=== PATIENT | female | born 1970 | race Caucasian/White ===

== ENCOUNTER 2020-09-22 09:03 | Emergency (ER) | payer OTHER | END 2020-09-22 11:57 | disposition left against medical advice (07) | LOC: ER 09:03 | DX: Z53.21 Procedure and treatment not carried out due to patient leaving prior to being seen by health care provider (principal) ==

== ENCOUNTER 2020-12-09 09:44 | Emergency (ER) | payer OTHER ==
[~2020-12-09] VITALS: Ht 177.8 cm; Wt 61.2 kg
[2020-12-09 10:28] LABS: BASOPHILS ABSOLUTE AUTO 0.03 K/mm3 (0.00-0.23); BASOPHILS PERCENT AUTO 0 % (0-2); EOSINOPHILS ABSOLUTE AUTO 0.01 K/mm3 (0.00-0.68); EOSINOPHILS PERCENT AUTO 0 % (0-6); Hematocrit 39.7 % (33.0-51.0); Hemoglobin 13.3 g/dL (11.5-16.0); IMMATURE GRAN ABSOLUTE AUTO 0.02 K/mm3 (0.00-0.10); IMMATURE GRAN PERCENT AUTO 0 % (0-1); LYMPHOCYTES ABSOLUTE AUTO 1.35 K/mm3 (0.84-5.20); LYMPHOCYTES PERCENT AUTO 17 % (21-46); MONOCYTES ABSOLUTE AUTO 0.38 K/mm3 (0.16-1.47); MONOCYTES PERCENT AUTO 5 % (4-13); Mean Corpuscular HGB 29.4 pg (26.0-34.0); Mean Corpuscular HGB Conc 33.5 g/dL (31.5-36.5); Mean Corpuscular Volume 88 fL (80-100); Mean Platelet Volume 9.5 fL (9.1-12.4); NEUTROPHILS ABSOLUTE AUTO 6.08 K/mm3 (1.96-9.15); NEUTROPHILS PERCENT AUTO 77 % (41-73); Platelet Count 273 K/mm3 (150-400); RDW Coefficient Variation 13.9 % (11.7-14.2); RDW Standard Deviation 45.2 fL (35.1-46.3); Red Blood Cell Count 4.53 M/mm3 (3.80-5.20); White Blood Cell Count 7.87 K/mm3 (4.00-11.30)
[2020-12-09 10:49] LABS: Alanine Aminotransfer (ALT/SGP 23 U/L (12-78); Albumin, Blood 3.8 g/dL (3.4-5.0); Albumin/Globulin Ratio 1.3 (0.8-1.8); Alk Phos 38 U/L (50-136); Anion Gap 8 mmol/L (6-16); Aspartate Aminotrans (AST/SGOT 14 U/L (12-37); Bilirubin, Total 0.5 mg/dL (0.1-1.0); Blood Urea Nitrogen 14 mg/dL (8-24); CO2, Blood 23 mmol/L (21-32); Calcium, Blood 8.9 mg/dL (8.5-10.1); Chloride, Blood 105 mmol/L (98-108); Glomerular Filtration Rate >60 (60-); Glucose, Blood 147 mg/dL (70-99); Potassium, Blood 3.6 mmol/L (3.5-5.5); Sodium, Blood 136 mmol/L (136-145); Total Protein, Blood 6.8 g/dL (6.4-8.2)
== END 2020-12-09 12:30 | disposition short-term general hospital (02) ==
LOC: ER 09:44
PROVIDERS: Emergency Medicine
DX: I77.71 Dissection of carotid artery (principal); H54.61 Unqualified visual loss, right eye, normal vision left eye
CPT/HCPCS: 70450; 70496; 70498; 80053; 85025; 96374; 96375; 99285-25; A9270; J2060; J2405; J3010; Q9967

== ENCOUNTER 2020-12-30 15:34 | Inpatient (IN) | payer OTHER ==
[~2020-12-30] VITALS: Ht 162.6 cm; Wt 63.5 kg
[2020-12-30 15:58] LABS: BASOPHILS ABSOLUTE AUTO 0.03 K/mm3 (0.00-0.23); BASOPHILS PERCENT AUTO 0 % (0-2); EOSINOPHILS PERCENT AUTO 0 % (0-6); Hematocrit 39.9 % (33.0-51.0); Hemoglobin 13.7 g/dL (11.5-16.0); IMMATURE GRAN ABSOLUTE AUTO 0.02 K/mm3 (0.00-0.10); IMMATURE GRAN PERCENT AUTO 0 % (0-1); LYMPHOCYTES ABSOLUTE AUTO 0.94 K/mm3 (0.84-5.20); LYMPHOCYTES PERCENT AUTO 9 % (21-46); MONOCYTES ABSOLUTE AUTO 0.26 K/mm3 (0.16-1.47); MONOCYTES PERCENT AUTO 2 % (4-13); Mean Corpuscular HGB 29.8 pg (26.0-34.0); Mean Corpuscular HGB Conc 34.3 g/dL (31.5-36.5); Mean Corpuscular Volume 87 fL (80-100); Mean Platelet Volume 9.4 fL (9.1-12.4); NEUTROPHILS ABSOLUTE AUTO 9.43 K/mm3 (1.96-9.15); NEUTROPHILS PERCENT AUTO 88 % (41-73); Platelet Count 285 K/mm3 (150-400); RDW Coefficient Variation 13.8 % (11.7-14.2); RDW Standard Deviation 43.8 fL (35.1-46.3); White Blood Cell Count 10.68 K/mm3 (4.00-11.30)
[2020-12-30 16:19] LABS: Ethanol (Alcohol), Blood, Med <3 mg/dL; Salicylate <1.7 mg/dL (2.8-20.0)
[2020-12-30 16:20] LABS: Alanine Aminotransfer (ALT/SGP 16 U/L (12-78); Albumin, Blood 4.4 g/dL (3.4-5.0); Albumin/Globulin Ratio 1.5 (0.8-1.8); Alk Phos 42 U/L (50-136); Anion Gap 7 mmol/L (6-16); Aspartate Aminotrans (AST/SGOT 14 U/L (12-37); Bilirubin, Total 0.5 mg/dL (0.1-1.0); Blood Urea Nitrogen 19 mg/dL (8-24); CO2, Blood 25 mmol/L (21-32); Calcium, Blood 8.8 mg/dL (8.5-10.1); Chloride, Blood 104 mmol/L (98-108); Globulin, Blood 2.9 g/dL (2.2-4.0); Glomerular Filtration Rate >60 (60-); Glucose, Blood 120 mg/dL (70-99); Sodium, Blood 136 mmol/L (136-145); Total Protein, Blood 7.3 g/dL (6.4-8.2)
[2020-12-30 16:43] LABS: Acetaminophen, Random 106.9 ug/mL (10.0-30.0)
[2020-12-30 16:45] LABS: Source, Urine Voided
[2020-12-30 16:50] LABS: Appearance, Urine Clear (Clear); Bilirubin, Urine Neg (Neg); Blood, Urine 1+ (Neg); Color, Urine Yellow (P-Yellow); Glucose Qualitative, Urine 4+ (Neg); Ketones, Urine Neg (Neg); Leukocyte Esterase, Urine 2+ (Neg); Nitrite, Urine Neg (Neg); Protein, Urine 1+ (Neg); Specific Gravity, Urine 1.015 (1.003-1.022); Urobilinogen, Urine NORM (Normal)
[2020-12-30 17:07] LABS: U Amphetamine Screen Not Detected; U Barbituate Screen Not Detected; U Benzodiazapine Screen Not Detected; U Buprenorphine Screen Not Detected; U Cannabinoids Screen DETECTED; U Cocaine Screen Not Detected; U Methadone Screen Not Detected; U Methamphetamine Screen Not Detected; U Opiates Screen Not Detected; U Oxycodone Screen Not Detected; U Phencyclidine Screen Not Detected; U Propoxyphene Screen Not Detected
[2020-12-30 17:17] LABS: Bacteria Many /hpf; Red Blood Cells, Urine 0-2 /hpf (0-2); Squamous Epithelial Cells Few /hpf (Few)
[2020-12-30 18:07] LABS: Influenza A, PCR NEGATIVE (NEGATIVE); Influenza B, PCR NEGATIVE (NEGATIVE); Resp Syncytial Virus, PCR NEGATIVE (NEGATIVE); SARS-Cov-2 (COVID-19) PCR, MMC NEGATIVE (NEGATIVE)
[2020-12-30 18:09] LABS: International Normalized Ratio 1.16; Prothrombin Time Results 12.1 Sec (9.7-11.5)
[2020-12-30 18:58] LABS: Albumin, Blood 4.4 g/dL (3.4-5.0); Albumin/Globulin Ratio 1.5 (0.8-1.8); Bilirubin, Direct 0.1 mg/dL (0.0-0.3); Bilirubin, Indirect 0.5 mg/dL (0.1-0.7); Bilirubin, Total 0.6 mg/dL (0.1-1.0); Globulin, Blood 2.9 g/dL (2.2-4.0); Total Protein, Blood 7.3 g/dL (6.4-8.2)
[2020-12-30 22:27] LABS: Acetaminophen, Random 22.9 ug/mL (10.0-30.0)
[2020-12-30 22:29] LABS: Alanine Aminotransfer (ALT/SGP 22 U/L (12-78); Albumin, Blood 3.5 g/dL (3.4-5.0); Albumin/Globulin Ratio 1.3 (0.8-1.8); Alk Phos 31 U/L (50-136); Aspartate Aminotrans (AST/SGOT 16 U/L (12-37); Bilirubin, Direct <0.1 mg/dL (0.0-0.3); Bilirubin, Indirect Unable to Calculate mg/dL (0.1-0.7); Bilirubin, Total 0.5 mg/dL (0.1-1.0); Globulin, Blood 2.7 g/dL (2.2-4.0); Total Protein, Blood 6.2 g/dL (6.4-8.2)
[2020-12-31 04:29] LABS: Albumin, Blood 3.4 g/dL (3.4-5.0); Albumin/Globulin Ratio 1.4 (0.8-1.8); Bilirubin, Direct 0.1 mg/dL (0.0-0.3); Bilirubin, Indirect 0.4 mg/dL (0.1-0.7); Bilirubin, Total 0.5 mg/dL (0.1-1.0); Globulin, Blood 2.4 g/dL (2.2-4.0); Total Protein, Blood 5.8 g/dL (6.4-8.2)
[2020-12-31 06:43] LABS: BASOPHILS ABSOLUTE AUTO 0.04 K/mm3 (0.00-0.23); BASOPHILS PERCENT AUTO 0 % (0-2); EOSINOPHILS ABSOLUTE AUTO 0.03 K/mm3 (0.00-0.68); EOSINOPHILS PERCENT AUTO 0 % (0-6); Hematocrit 37.4 % (33.0-51.0); Hemoglobin 13.2 g/dL (11.5-16.0); IMMATURE GRAN ABSOLUTE AUTO 0.04 K/mm3 (0.00-0.10); IMMATURE GRAN PERCENT AUTO 0 % (0-1); LYMPHOCYTES PERCENT AUTO 10 % (21-46); MONOCYTES ABSOLUTE AUTO 0.54 K/mm3 (0.16-1.47); MONOCYTES PERCENT AUTO 4 % (4-13); Mean Corpuscular HGB 29.8 pg (26.0-34.0); Mean Corpuscular HGB Conc 35.3 g/dL (31.5-36.5); Mean Corpuscular Volume 84 fL (80-100); Mean Platelet Volume 9.5 fL (9.1-12.4); NEUTROPHILS ABSOLUTE AUTO 10.54 K/mm3 (1.96-9.15); NEUTROPHILS PERCENT AUTO 85 % (41-73); Platelet Count 288 K/mm3 (150-400); RDW Coefficient Variation 13.8 % (11.7-14.2); RDW Standard Deviation 43.2 fL (35.1-46.3); Red Blood Cell Count 4.43 M/mm3 (3.80-5.20); White Blood Cell Count 12.39 K/mm3 (4.00-11.30)
[2020-12-31 07:12] LABS: Alanine Aminotransfer (ALT/SGP 18 U/L (12-78); Albumin, Blood 3.6 g/dL (3.4-5.0); Albumin/Globulin Ratio 1.2 (0.8-1.8); Alk Phos 30 U/L (50-136); Anion Gap 8 mmol/L (6-16); Aspartate Aminotrans (AST/SGOT 14 U/L (12-37); Bilirubin, Total 0.5 mg/dL (0.1-1.0); Blood Urea Nitrogen 14 mg/dL (8-24); Bun/Creatinine Ratio 17.9 (12.0-20.0); CO2, Blood 25 mmol/L (21-32); Calcium, Blood 8.7 mg/dL (8.5-10.1); Chloride, Blood 107 mmol/L (98-108); Creatinine, Blood 0.78 mg/dL (0.40-1.00); Glomerular Filtration Rate >60 (60-); Glucose, Blood 104 mg/dL (70-99); Potassium, Blood 3.6 mmol/L (3.5-5.5); Sodium, Blood 140 mmol/L (136-145); Total Protein, Blood 6.6 g/dL (6.4-8.2); Troponin I <0.015 ng/mL (0.000-0.040)
[2020-12-31 08:31] LABS: International Normalized Ratio 1.19; Prothrombin Time Results 12.4 Sec (9.7-11.5)
[2020-12-31 15:22] LABS: International Normalized Ratio 1.19; Prothrombin Time Results 12.4 Sec (9.7-11.5)
[2020-12-31 15:28] LABS: Acetaminophen, Random <2.0 ug/mL (10.0-30.0); Alanine Aminotransfer (ALT/SGP 16 U/L (12-78); Albumin, Blood 3.8 g/dL (3.4-5.0); Albumin/Globulin Ratio 1.3 (0.8-1.8); Alk Phos 38 U/L (50-136); Aspartate Aminotrans (AST/SGOT 14 U/L (12-37); Bilirubin, Direct 0.1 mg/dL (0.0-0.3); Bilirubin, Indirect 0.4 mg/dL (0.1-0.7); Bilirubin, Total 0.5 mg/dL (0.1-1.0); Total Protein, Blood 6.8 g/dL (6.4-8.2)
--- NOTE | 2020-12-31 17:02 | NUR ---
Per Dr Lucero, Poison control was updated about this pt being admitted. The poison control rep reported that the pt's case had been closed as her "overdose had ran its course".
--- NOTE | 2020-12-31 17:29 | NUR ---
SHIFT SUMMARY PT ARRIVED FROM ED VIA BED. PT C/O NEW ONSET LEFT HIP PAIN, PT STATES THAT IT BEGAN TODAY AFTER TAKING A SHOWER AND CITES A CHRONIC HEALTH CONDITION THE CAUSE. PT IS COOPERATIVE. 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 PT MADE VERY SPECIFIC REQUESTS TO THE HANDLING OF CURRENT IV ACCESS. PT STATED CHRONIC NECK PAIN A /. PT DENIES SOB AND CHEST PAIN.
[2021-01-01 04:43] LABS: Alanine Aminotransfer (ALT/SGP 16 U/L (12-78); Albumin, Blood 3.3 g/dL (3.4-5.0); Albumin/Globulin Ratio 1.2 (0.8-1.8); Alk Phos 34 U/L (50-136); Anion Gap 5 mmol/L (6-16); Aspartate Aminotrans (AST/SGOT 14 U/L (12-37); Bilirubin, Total 0.4 mg/dL (0.1-1.0); Blood Urea Nitrogen 11 mg/dL (8-24); Bun/Creatinine Ratio 14.3 (12.0-20.0); CO2, Blood 25 mmol/L (21-32); Calcium, Blood 8.1 mg/dL (8.5-10.1); Chloride, Blood 111 mmol/L (98-108); Creatinine, Blood 0.77 mg/dL (0.40-1.00); Globulin, Blood 2.7 g/dL (2.2-4.0); Glomerular Filtration Rate >60 (60-); Glucose, Blood 90 mg/dL (70-99); Potassium, Blood 4.1 mmol/L (3.5-5.5); Sodium, Blood 141 mmol/L (136-145)
--- NOTE | 2021-01-01 06:34 | NUR ---
SHIFT SUMMARY ASSUMED CARE OF PT AT 1900. PT IS A/OX4. HEART SOUNDS REGUALR, LUNG SOUNDS CLEAR. PT WAS INDEPENDT TO BATHROOM. PT REMAINED ON CAMERA T/O THE NIGHT. PT WAS VERY ANXIOUS AT THE START OF SHIFT. AND AWOKE DURING THE NIGHT PANICKED BECAUSE HER JAW POPPED AND SHE SAID IT FELT LIKE IT WAS FALLING OFF. PT STATED THAT SOMETIMES SHE USED 1MG OF ATIVAN TO CALM DOWN. HOSPITALIST NOTIFIED AND AGREED WITH THE ORDER. PT WAS ABLE TO SLEEP AFTER THIS AND WAS MORE CALM. CALL LIGHT IN REACH, BED IN LOWEST POSITION.
--- NOTE | 2021-01-01 11:40 | NUR ---
ALL SI PRECAUTIONS IN PLACE. CONTINUOUS VISUAL MONITORING IN PLACE. PT IS COOPERATIVE AND SLIGHTLY ANXIOUS. GOOD APPETITE. COMPLAINS OF SOME ABDOMINAL DISCOMFORT.
--- NOTE | 2021-01-01 12:07 | NUR ---
Upon receiving a referral for spiritual care, I visit patient. Patient is very tense initially but quickly began to relax her body and communicate more fluidly. Patient talks about her suicide attempt and she gives history and context to it. We then begin to explore sources of hope, meaning and purpose. She shares personal information and we discuss mindfulness practices, spirituality and reframing ways to think about her past, present and future. Patient responds well and and shows signs of cartharsis and increased hope. I will continue to assist in creating a plan for her own spiritul care if I get a chance to speak with her further.
[2021-01-01] MEDS ORDERED: LIDOCAINE1 EAC1 TOP (12:31)
--- NOTE | 2021-01-01 13:42 | NUR ---
CALLED REPORT TO [facility], [facility] IS WHO I GAVE REPORT TO.
--- NOTE | 2021-01-01 13:43 | NUR ---
PT IS A&OX4, ANXIOUS THROUGHOUT THE DAY. VSS ON RA. PT REPORTED NAUSEA, PRN ZOFRAN GIVEN. PT REPORTS EPIGASTRIC PAIN. IV REMOVED AND REPORT GIVEN TO [facility] ([facility]).
--- NOTE | 2021-01-01 14:52 | NUR ---
PT WAS PICKED UP BY [facility] @1400. BELONGING WERE GIVEN TO STAFF.
== END 2021-01-01 14:13 | DRG 918 ==
LOC: ER 15:34 → ERHOLD 18:35 → PCU 18:35
PROVIDERS: Emergency Medicine; Internal Medicine; ADMIT Family Medicine
DX: T39.1X2A Poisoning by 4-Aminophenol derivatives, intentional self-harm, initial encounter (principal); F32.9 Major depressive disorder, single episode, unspecified; F41.9 Anxiety disorder, unspecified; Z66 Do not resuscitate; G89.29 Other chronic pain; M54.2 Cervicalgia; Z20.822 Contact with and (suspected) exposure to COVID-19; Z87.891 Personal history of nicotine dependence
CPT/HCPCS: 0241U; 36415; 80053; 80076; 81001; 81025; 83735; 84439; 84443; 84484; 85025; 85610; 85730; 87086; 93005; 93010; 96374; 96375; 96376; 99285-25; A9270; G0480; J0132; J2405; J7030; J7060; J7070

== ENCOUNTER 2021-01-03 08:50 | Emergency (ER) | payer OTHER ==
[~2021-01-03] VITALS: Ht 177.8 cm; Wt 59.0 kg
[~2021-01-03 08:50] MED LIST: LIDOCAINE1 EAC1 TOP
[2021-01-03] MEDS ORDERED: Mobic15 MG PO (09:35)
== END 2021-01-03 10:00 | disposition home or self-care (01) ==
LOC: ER 08:50
DX: M25.812 Other specified joint disorders, left shoulder (principal); Z88.2 Allergy status to sulfonamides; Z91.040 Latex allergy status; Z79.899 Other long term (current) drug therapy; Z87.891 Personal history of nicotine dependence
CPT/HCPCS: 73030; 99283-25

== ENCOUNTER 2021-07-10 11:59 | Emergency (ER) | payer OTHER ==
[~2021-07-10] VITALS: Ht 177.8 cm; Wt 70.3 kg
[~2021-07-10 11:59] MED LIST changes: +Mobic15 MG PO
[2021-07-10] MEDS ORDERED: QUET200 PO (12:21)
[2021-07-10] MEDS ORDERED: CYCL10 PO (12:21)
[2021-07-10] MEDS ORDERED: DIAZ5 PO (15:18)
== END 2021-07-10 15:22 | disposition home or self-care (01) ==
LOC: ER 11:59
DX: M43.6 Torticollis (principal); M26.601 Right temporomandibular joint disorder, unspecified; Z87.891 Personal history of nicotine dependence; Z88.2 Allergy status to sulfonamides; Z91.040 Latex allergy status
CPT/HCPCS: 70498; 96374-59; 96375-59; 99284-25; J2405; J3360; Q9967

== ENCOUNTER 2021-10-09 03:55 | Emergency (ER) | payer OTHER ==
[~2021-10-09] VITALS: Ht 177.8 cm; Wt 65.8 kg
[~2021-10-09 03:55] MED LIST changes: +CYCL10 PO; +DIAZ5 PO; +QUET200 PO
[2021-10-09] MEDS ORDERED: OXYC5 PO (06:07)
[2021-10-10] MEDS ORDERED: Robaxin750 MG PO (03:11)
== END 2021-10-09 06:40 | disposition home or self-care (01) ==
LOC: ER 03:55
DX: M26.631 Articular disc disorder of right temporomandibular joint (principal); S76.012A Strain of muscle, fascia and tendon of left hip, initial encounter; X58.XXXA Exposure to other specified factors, initial encounter; Z87.891 Personal history of nicotine dependence
CPT/HCPCS: 70486; 73502; 96374; 96375; 96376; 99284-25; A9270; J1170; J1885; J2405

== ENCOUNTER 2021-10-10 00:05 | Emergency (ER) | payer OTHER ==
[~2021-10-10] VITALS: Ht 162.6 cm; Wt 72.6 kg
[~2021-10-10 00:05] MED LIST changes: +OXYC5 PO
[2021-10-10] MEDS ORDERED: Robaxin750 MG PO (03:11)
[2021-10-11] MEDS ORDERED: ONDA4ODT SL (18:03)
[2021-10-11] MEDS ORDERED: Ativan1 MG SL (18:05)
== END 2021-10-10 03:15 | disposition home or self-care (01) ==
LOC: ER 00:05
DX: M62.838 Other muscle spasm (principal); M26.621 Arthralgia of right temporomandibular joint; G89.29 Other chronic pain; Z88.2 Allergy status to sulfonamides; Z91.040 Latex allergy status
CPT/HCPCS: A9270

== ENCOUNTER 2021-10-11 13:47 | Emergency (ER) | payer OTHER ==
[~2021-10-11] VITALS: Ht 172.7 cm; Wt 59.0 kg
[~2021-10-11 13:47] MED LIST changes: +Robaxin750 MG PO
[2021-10-11 14:24] LABS: BASOPHILS ABSOLUTE AUTO 0.04 K/mm3 (0.00-0.23); BASOPHILS PERCENT AUTO 1 % (0-2); EOSINOPHILS ABSOLUTE AUTO 0.01 K/mm3 (0.00-0.68); EOSINOPHILS PERCENT AUTO 0 % (0-6); Hematocrit 43.6 % (33.0-51.0); Hemoglobin 15.3 g/dL (11.5-16.0); IMMATURE GRAN ABSOLUTE AUTO 0.02 K/mm3 (0.00-0.10); IMMATURE GRAN PERCENT AUTO 0 % (0-1); LYMPHOCYTES ABSOLUTE AUTO 1.66 K/mm3 (0.84-5.20); LYMPHOCYTES PERCENT AUTO 20 % (21-46); MONOCYTES ABSOLUTE AUTO 0.42 K/mm3 (0.16-1.47); MONOCYTES PERCENT AUTO 5 % (4-13); Mean Corpuscular HGB Conc 35.1 g/dL (31.5-36.5); Mean Corpuscular Volume 86 fL (80-100); Mean Platelet Volume 9.5 fL (9.1-12.4); NEUTROPHILS ABSOLUTE AUTO 6.19 K/mm3 (1.96-9.15); NEUTROPHILS PERCENT AUTO 74 % (41-73); Platelet Count 294 K/mm3 (150-400); RDW Coefficient Variation 12.2 % (11.7-14.2); RDW Standard Deviation 38.4 fL (35.1-46.3); White Blood Cell Count 8.34 K/mm3 (4.00-11.30)
[2021-10-11 14:37] LABS: Alanine Aminotransfer (ALT/SGP 29 U/L (12-78); Albumin, Blood 4.7 g/dL (3.4-5.0); Albumin/Globulin Ratio 1.8 (0.8-1.8); Alk Phos 45 U/L (50-136); Anion Gap 8 mmol/L (6-16); Aspartate Aminotrans (AST/SGOT 27 U/L (12-37); Bilirubin, Total 0.8 mg/dL (0.1-1.0); Blood Urea Nitrogen 11 mg/dL (8-24); Bun/Creatinine Ratio 13.2 (12.0-20.0); CO2, Blood 22 mmol/L (21-32); Chloride, Blood 108 mmol/L (98-108); Creatinine, Blood 0.83 mg/dL (0.40-1.00); Ethanol (Alcohol), Blood, Med <3 mg/dL; Globulin, Blood 2.6 g/dL (2.2-4.0); Glomerular Filtration Rate 86 (60-); Glucose, Blood 133 mg/dL (70-99); Potassium, Blood 3.5 mmol/L (3.5-5.5); Sodium, Blood 138 mmol/L (136-145); Total Protein, Blood 7.3 g/dL (6.4-8.2)
[2021-10-11] MEDS ORDERED: ONDA4ODT SL (18:03)
[2021-10-11] MEDS ORDERED: Ativan1 MG SL (18:05)
== END 2021-10-11 19:47 | disposition home or self-care (01) ==
LOC: ER 13:47
PROVIDERS: Physician Assistant
DX: M26.621 Arthralgia of right temporomandibular joint (principal); G51.31 Clonic hemifacial spasm, right; F32.A Depression, unspecified; Z88.2 Allergy status to sulfonamides; Z91.040 Latex allergy status; Z79.899 Other long term (current) drug therapy; Z87.891 Personal history of nicotine dependence
CPT/HCPCS: 36415; 70450; 80053; 85025; G0480; J1885; J2060

== ENCOUNTER 2021-11-17 17:55 | Emergency (ER) | payer OTHER ==
[~2021-11-17] VITALS: Ht 177.8 cm; Wt 68.0 kg
[~2021-11-17 17:55] MED LIST changes: +Ativan1 MG SL; +ONDA4ODT SL
[2021-11-17] MEDS ORDERED: CYCL10 PO (18:20)
[2021-11-17] MEDS ORDERED: PREG150 PO (18:21)
[2021-11-17] MEDS ORDERED: METPHE27ER PO (18:21)
[2021-11-17 18:35] LABS: Calcium, Ionized (POC) 1.24 mmol/L (1.10-1.46); Chloride (POC) 101 mmol/L (98-108); Creatinine (POC) 0.8 mg/dL (0.6-1.0); Glucose (ISTAT POC) 94 mg/dL (70-99); Hemoglobin (POC) 12.9 g/dL (12.0-16.0); Potassium (POC) 3.6 mmol/L (3.5-5.5); Sodium (POC) 139 mmol/L (135-148); Total CO2 (POC) 26 mmol/L (21-32)
[2021-11-17] MEDS ORDERED: Ativan1 MG PO (19:11)
== END 2021-11-17 19:37 | disposition home or self-care (01) ==
LOC: ER 17:55
PROVIDERS: Emergency Medicine
DX: M26.609 Unspecified temporomandibular joint disorder, unspecified side (principal); Z88.2 Allergy status to sulfonamides; F32.A Depression, unspecified; Z91.040 Latex allergy status; Z79.899 Other long term (current) drug therapy; Z87.891 Personal history of nicotine dependence
CPT/HCPCS: 80047; 85014; 93005; 93010; 99284-25; A9270

== ENCOUNTER 2022-01-10 04:00 | Emergency (ER) | payer OTHER ==
[~2022-01-10] VITALS: Ht 177.8 cm; Wt 68.0 kg
[~2022-01-10 04:00] MED LIST changes: +Ativan1 MG PO; +METPHE27ER PO; +PREG150 PO
== END 2022-01-10 05:44 | disposition home or self-care (01) ==
LOC: ER 04:00
DX: M26.601 Right temporomandibular joint disorder, unspecified (principal); Z88.2 Allergy status to sulfonamides; Z91.040 Latex allergy status; Z79.899 Other long term (current) drug therapy; Z87.891 Personal history of nicotine dependence
CPT/HCPCS: A9270

== ENCOUNTER 2022-07-16 08:57 | Emergency (ER) | payer OTHER ==
[~2022-07-16] VITALS: Ht 172.7 cm; Wt 54.4 kg
[2022-07-16 09:25] VITALS: BP 116/72
[2022-07-16] MEDS ORDERED: Percocet 5-3251 EACH PO (10:19)
[2022-07-16] MEDS ORDERED: Valium5 MG PO (10:19)
[2022-07-16] MEDS ORDERED: TIZA4 PO (10:19)
== END 2022-07-16 10:44 | disposition home or self-care (01) ==
LOC: ER 08:57
DX: R68.84 Jaw pain (principal); G89.29 Other chronic pain; F41.9 Anxiety disorder, unspecified; Z88.2 Allergy status to sulfonamides; Z91.040 Latex allergy status; Z87.891 Personal history of nicotine dependence
CPT/HCPCS: 96374; 96375; 99283-25; A9270; J1885; J2060

== ENCOUNTER 2022-10-16 12:18 | Emergency (ER) | payer OTHER ==
[~2022-10-16] VITALS: Ht 177.8 cm; Wt 63.5 kg
[~2022-10-16 12:18] MED LIST changes: +Percocet 5-3251 EACH PO; +TIZA4 PO; +Valium5 MG PO
[2022-10-16 13:23] VITALS: BP 126/91
[2022-10-16 13:31] LABS: BASOPHILS ABSOLUTE AUTO 0.03 K/mm3 (0.00-0.23); BASOPHILS PERCENT AUTO 1 % (0-2); EOSINOPHILS ABSOLUTE AUTO 0.02 K/mm3 (0.00-0.68); EOSINOPHILS PERCENT AUTO 0 % (0-6); Hematocrit 43.3 % (33.0-51.0); Hemoglobin 15.3 g/dL (11.5-16.0); IMMATURE GRAN ABSOLUTE AUTO 0.02 K/mm3 (0.00-0.10); IMMATURE GRAN PERCENT AUTO 0 % (0-1); LYMPHOCYTES PERCENT AUTO 20 % (21-46); MONOCYTES ABSOLUTE AUTO 0.32 K/mm3 (0.16-1.47); MONOCYTES PERCENT AUTO 5 % (4-13); Mean Corpuscular HGB 30.6 pg (26.0-34.0); Mean Corpuscular HGB Conc 35.3 g/dL (31.5-36.5); Mean Corpuscular Volume 87 fL (80-100); Mean Platelet Volume 9.3 fL (9.1-12.4); NEUTROPHILS ABSOLUTE AUTO 4.54 K/mm3 (1.96-9.15); NEUTROPHILS PERCENT AUTO 74 % (41-73); Platelet Count 322 K/mm3 (150-400); RDW Coefficient Variation 13.2 % (11.7-14.2); RDW Standard Deviation 41.3 fL (35.1-46.3); White Blood Cell Count 6.13 K/mm3 (4.00-11.30)
[2022-10-16] MEDS ORDERED: Robaxin750 MG PO (13:44)
[2022-10-16] MEDS ORDERED: GABA800 PO (13:45)
[2022-10-16] MEDS ORDERED: OLUMIANT2 MG PO (13:45)
[2022-10-16 13:47] LABS: Albumin, Blood 4.6 g/dL (3.4-5.0); Albumin/Globulin Ratio 1.6 (0.8-1.8); Bilirubin, Total 0.4 mg/dL (0.1-1.0); Bun/Creatinine Ratio 17.7 (12.0-20.0); Calcium, Blood 9.7 mg/dL (8.5-10.1); Creatinine, Blood 0.79 mg/dL (0.40-1.00); Globulin, Blood 2.9 g/dL (2.2-4.0); Potassium, Blood 3.8 mmol/L (3.5-5.5); Total Protein, Blood 7.5 g/dL (6.4-8.2)
== END 2022-10-16 15:45 | disposition home or self-care (01) ==
LOC: ER 12:18
PROVIDERS: Emergency Medicine
DX: R25.2 Cramp and spasm (principal); M26.629 Arthralgia of temporomandibular joint, unspecified side; M54.2 Cervicalgia; G89.29 Other chronic pain; Z88.2 Allergy status to sulfonamides; Z91.040 Latex allergy status; Z79.899 Other long term (current) drug therapy; Z87.891 Personal history of nicotine dependence
CPT/HCPCS: 80053; 85025; 96374; 96375; 96376; 99283-25; J1885; J3360; J7030

== ENCOUNTER 2022-10-18 09:44 | Emergency (ER) | payer OTHER ==
[~2022-10-18] VITALS: Ht 180.3 cm; Wt 63.5 kg
[~2022-10-18 09:44] MED LIST changes: +GABA800 PO; +OLUMIANT2 MG PO
[2022-10-18 10:52] LABS: BASOPHILS ABSOLUTE AUTO 0.03 K/mm3 (0.00-0.23); BASOPHILS PERCENT AUTO 1 % (0-2); EOSINOPHILS ABSOLUTE AUTO 0.02 K/mm3 (0.00-0.68); EOSINOPHILS PERCENT AUTO 0 % (0-6); Hematocrit 41.6 % (33.0-51.0); Hemoglobin 14.6 g/dL (11.5-16.0); IMMATURE GRAN ABSOLUTE AUTO 0.01 K/mm3 (0.00-0.10); IMMATURE GRAN PERCENT AUTO 0 % (0-1); LYMPHOCYTES ABSOLUTE AUTO 1.13 K/mm3 (0.84-5.20); LYMPHOCYTES PERCENT AUTO 21 % (21-46); MONOCYTES PERCENT AUTO 6 % (4-13); Mean Corpuscular HGB 30.8 pg (26.0-34.0); Mean Corpuscular HGB Conc 35.1 g/dL (31.5-36.5); Mean Corpuscular Volume 88 fL (80-100); Mean Platelet Volume 9.4 fL (9.1-12.4); NEUTROPHILS ABSOLUTE AUTO 3.89 K/mm3 (1.96-9.15); NEUTROPHILS PERCENT AUTO 72 % (41-73); Platelet Count 307 K/mm3 (150-400); RDW Coefficient Variation 13.2 % (11.7-14.2); RDW Standard Deviation 42.7 fL (35.1-46.3); Red Blood Cell Count 4.74 M/mm3 (3.80-5.20); White Blood Cell Count 5.38 K/mm3 (4.00-11.30)
[2022-10-18 11:09] LABS: Albumin, Blood 4.1 g/dL (3.4-5.0); Albumin/Globulin Ratio 1.5 (0.8-1.8); Bilirubin, Total 0.2 mg/dL (0.1-1.0); Bun/Creatinine Ratio 15.7 (12.0-20.0); Creatinine, Blood 0.83 mg/dL (0.40-1.00); Globulin, Blood 2.7 g/dL (2.2-4.0); Potassium, Blood 3.7 mmol/L (3.5-5.5); Total Protein, Blood 6.8 g/dL (6.4-8.2)
[2022-10-18 12:45] VITALS: BP 114/75
[2022-10-18] MEDS ORDERED: LIDO700A20 TOP (13:01)
== END 2022-10-18 13:44 | disposition home or self-care (01) ==
LOC: ER 09:44
PROVIDERS: Student in an Organized Health Care Education/Training Program
DX: M54.2 Cervicalgia (principal); M26.601 Right temporomandibular joint disorder, unspecified; R53.1 Weakness; Z88.2 Allergy status to sulfonamides; Z91.040 Latex allergy status; Z87.891 Personal history of nicotine dependence
CPT/HCPCS: 70450; 70496; 70498; 80053; 82947; 85025; 93005; 93010; 96374-59; 96375-59; 99285-25; A9270; J1885; J3010; J3360; Q9967

== ENCOUNTER 2023-01-22 19:07 | Inpatient (IN) | payer OTHER ==
[~2023-01-22] VITALS: Ht 165.1 cm; Wt 69.1 kg
[~2023-01-22 19:07] MED LIST changes: -GABA800 PO; +GRALISE900 MG PO; +LIDO700A20 TOP; +Methocarbamol500 MG PO
[2023-01-22 19:41] LABS: Source, Urine Straight Cath
[2023-01-22 19:41] LABS: BASOPHILS ABSOLUTE AUTO 0.04 K/mm3 (0.00-0.23); BASOPHILS PERCENT AUTO 1 % (0-2); EOSINOPHILS ABSOLUTE AUTO 0.11 K/mm3 (0.00-0.68); EOSINOPHILS PERCENT AUTO 2 % (0-6); Hematocrit 40.9 % (33.0-51.0); Hemoglobin 13.9 g/dL (11.5-16.0); IMMATURE GRAN ABSOLUTE AUTO 0.01 K/mm3 (0.00-0.10); IMMATURE GRAN PERCENT AUTO 0 % (0-1); LYMPHOCYTES ABSOLUTE AUTO 1.07 K/mm3 (0.84-5.20); LYMPHOCYTES PERCENT AUTO 14 % (21-46); MONOCYTES ABSOLUTE AUTO 0.45 K/mm3 (0.16-1.47); MONOCYTES PERCENT AUTO 6 % (4-13); Mean Corpuscular HGB 31.7 pg (26.0-34.0); Mean Corpuscular Volume 93 fL (80-100); Mean Platelet Volume 9.5 fL (9.1-12.4); NEUTROPHILS ABSOLUTE AUTO 5.87 K/mm3 (1.96-9.15); NEUTROPHILS PERCENT AUTO 78 % (41-73); Platelet Count 286 K/mm3 (150-400); RDW Coefficient Variation 12.8 % (11.7-14.2); RDW Standard Deviation 44.1 fL (35.1-46.3); Red Blood Cell Count 4.38 M/mm3 (3.80-5.20); White Blood Cell Count 7.55 K/mm3 (4.00-11.30)
[2023-01-22 19:47] LABS: Appearance, Urine Cloudy (Clear); Bilirubin, Urine Neg (Neg); Blood, Urine 1+ (Neg); Color, Urine Yellow (P-Yellow); Glucose Qualitative, Urine Neg (Neg); Ketones, Urine 1+ (Neg); Leukocyte Esterase, Urine 3+ (Neg); Nitrite, Urine Pos (Neg); Protein, Urine 1+ (Neg); Specific Gravity, Urine 1.015 (1.003-1.022); Urobilinogen, Urine NORM (Normal)
[2023-01-22 20:03] LABS: U Amphetamine Screen Not Detected; U Barbituate Screen Not Detected; U Benzodiazapine Screen Not Detected; U Buprenorphine Screen Not Detected; U Cannabinoids Screen DETECTED; U Cocaine Screen Not Detected; U Methadone Screen Not Detected; U Methamphetamine Screen Not Detected; U Opiates Screen Not Detected; U Oxycodone Screen Not Detected; U Phencyclidine Screen Not Detected
[2023-01-22 20:05] LABS: White Blood Cells, Urine 50-100 /hpf (0-5)
[2023-01-22 20:06] LABS: Bacteria Many /hpf; Squamous Epithelial Cells Few /hpf (Few)
[2023-01-22 20:07] LABS: Acetaminophen, Random <2.0 ug/mL (10.0-30.0); Ethanol (Alcohol), Blood, Med <3 mg/dL; Magnesium, Blood 2.1 mg/dL (1.6-2.4); Salicylate <1.7 mg/dL (2.8-20.0)
[2023-01-22 20:17] LABS: Alanine Aminotransfer (ALT/SGP 21 U/L (12-78); Albumin, Blood 4.2 g/dL (3.4-5.0); Albumin/Globulin Ratio 1.4 (0.8-1.8); Alk Phos 47 U/L (50-136); Anion Gap 7 mmol/L (6-16); Aspartate Aminotrans (AST/SGOT 19 U/L (12-37); Bilirubin, Total 0.5 mg/dL (0.1-1.0); Blood Urea Nitrogen 12 mg/dL (8-24); Bun/Creatinine Ratio 14.9 (12.0-20.0); CO2, Blood 27 mmol/L (21-32); Chloride, Blood 110 mmol/L (98-108); Globulin, Blood 2.9 g/dL (2.2-4.0); Glomerular Filtration Rate 89 (60-); Glucose, Blood 120 mg/dL (70-99); Potassium, Blood 3.8 mmol/L (3.5-5.5); Sodium, Blood 144 mmol/L (136-145); Total Protein, Blood 7.1 g/dL (6.4-8.2)
[2023-01-22 22:53] VITALS: BP 104/65
--- NOTE | 2023-01-22 23:30 | NUR ---
SPOKE WITH DR CADE ABOUT A PSYCHIATRIC CONSULT R/T PT ON HIGH SI, WOULD LIKE TO WAIT FOR TOMMOROW WHEN THE PT WILL HOPEFULLY BE AWAKE AND ABLE TO ANSWER QUESTIONS FOR A MORE ACURATE ASSESSMENT TO DETERMINE IF SHE NEEDS ONE OR NOT.
[2023-01-23 01:03] VITALS: BP 118/77
[2023-01-23 04:18] VITALS: BP 132/82
[2023-01-23 06:12] LABS: Bun/Creatinine Ratio 19.1 (12.0-20.0); Calcium, Blood 8.4 mg/dL (8.5-10.1); Creatinine, Blood 0.63 mg/dL (0.40-1.00); Potassium, Blood 3.6 mmol/L (3.5-5.5)
--- NOTE | 2023-01-23 06:30 | NUR ---
CRITICAL LACTIC ACID CALLED INTO DR CADE. ORDER TO JUST CONT FLUIDS
[2023-01-23 07:52] VITALS: BP 103/62
--- NOTE | 2023-01-23 08:01 | NUR ---
0755- THIS RN NOTIFIED MAVERICK OF PT'S CHEM BG = 59 THIS MORNING. MD GAVE VERBAL TO STOP NS AND SWITCH TO D5W @1OO ML/HR, CHECK LACTIC AT 1200, AND Q 1 CHEM BG X3. THS RN UPDATED MD ON PT'S STTUS THROUGH THE NIGHT OF X3 SEIZURES AND MEDS ADMINISTERED.
[2023-01-23 15:54] VITALS: BP 121/73
--- NOTE | 2023-01-23 18:02 | NUR ---
SUMMARY- PT HAS BEEN SLEEPING MOST OF THE SHIFT, BUT HAS HAD MULTIPLE EPISODES OF AWAKING AND BEING VERY FIGITY AND TEARFUL-PT GIVEN ATIVAN IV TO HELP WITH THIS, WHICH HAS BEEN SUCCESSFUL. PT OTHERWISE ONLY RESPONSIVE TO PAIN. PT UNABLE TO ANSWER ANY ORIENTATION QUESTIONS. PT HAS STAYED IN BED ALL SHIFT. X2 BED CHANGE. NO COMPLAINTS OF PAIN. PUPILS REACTIVE AND 6MM ALL SHIFT. NO SEIZURES THIS SHIFT. PT HAS BEEN ON ROOM AIR ALL SHIFT.
[2023-01-23 20:19] VITALS: BP 110/81
--- NOTE | 2023-01-23 21:40 | NUR ---
PT VERY RESLTESS, TEARFUL AND ANXIOUS BUT NO PRN MEDS AVAILABLE. MADE AWARE W/ADDITIONAL DOSE ATIVAN 2MG IV NOW RX'D. WILL ADMIN AND REEVALUATE FOR EFFECT.
--- NOTE | 2023-01-23 23:50 | NUR ---
PT HAS REMAINED VERY RESTLESS, ANXIOUS, MOANING AND SITTING UP IN BED. ATIVAN HAD NO EFFECT AT CALMING PT. STAFF QUESTIONING PAIN BUT PT CANNOT SPECIFY OR ANSWER APPROPRIATELY. MADE AWARE W/PRN FENTANYL RX'D AND 50MCG RECIEVED. PT SEEMS TO HAVE HAD SOME RELIEF AND IS RESTING AT THIS TIME.
[2023-01-24] VITALS (32 sets, daily range): BP systolic 78–130; BP diastolic 44–85
--- NOTE | 2023-01-24 00:53 | NUR ---
FENTANYL ONLY SEEMED TO PROVIDE RESPITE FOR APPROX 15 MINS THEN PT HAS BEGUN TO GET INCREASINGLY MORE AGGITATED AGAIN. SHE'S DIFFICULT TO CONSOLE, IS TEARFUL AND VERY ANXIOUS. MADE AWARE W/X1 ZYPREXA 5MG IM RX'D AND RECIEVED, WILL MONITOR FOR EFFECT.
--- NOTE | 2023-01-24 01:10 | NUR ---
PT OBSERVED PULLING AT ATTENDS AND GRABBING [place] AREA. STAFF FINALLY GOT PT TO SAY "PEE" WHEN ASKED IF SHE NEEDED TO USE THE RESTROOM. WE ATTEMPTED GET PT UP TO BSC W/3PA AND GB REQUIRED. SHE COULDN'T COMPREHEND BEING ON THE TOILET DESPITE REPEATED EXPLANATION AND INSTRUCTION AND INSTEAD KEPT TRYING TO GET UP W/O URINATING. SHE WAS EXTREMELY UNSTEADY ON FEET W/DIFFICULTY WT.BEARING. STAFF ASSISTED PT BACK TO BED TO PERFORM BLADDER SCAN. [address]CATH RX OBTAINED FROM . PT IS VERY AGGITATED AT THIS TIME DESPITE HAVING RECENTLY RECIEVED IM ZYPREXA. PLAN TO GATHER MORE STAFF FOR ASSISTANCE PRN AND WILL ALERT MD IF UNABLE TO PERFORM PROCEDURE.
--- NOTE | 2023-01-24 01:40 | NUR ---
VERY DIFFICULT STRAIGHT CATH PERFORMED: PT BECAME EXTREMELY AGGITATED AND COMBATIVE DURING ATTEMPT TO PERFORM ST.CATH. IT REQUIRED 6+ STAFF WELL SECURITY INVOLVEMENT TO PREVENT PT FROM HARMING HERSELF AND OTHERS DURING CATHETERIZATION. SHE WAS KICKING, THRUSTING HER BODY IN BED, SITTING UP, SWINGING AT STAFF, SCRATCHING AND SCREAMING LOUD POSSIBLE. NO ATTEMPT TO CONSOLE OR EXPLAIN RATIONALE WAS EFFECTIVE AND STAFF HAD TO REMAIN AT HER BEDSIDE TO RESTRAIN EXT'S TO PREVENT HER FROM PULLING CATH WHILE IT WAS DRAINING. NEARLY 1300 MLS UO WAS OBTAINED THEN CATH WAS DC'D. WAS MADE AWARE OF THE EVENT AND HE RX'D HALDOL 2MG IM Q4H PRN AND BLADDER SCANS W/ST.CATH PRN. PT CALMED SOME AFTER THE PROCEDURE BUT CONT'S DROWSY W/AMS AND LABILE MOOD. WCTM NEED FOR PRN ATIVAN OR HALDOL. SITTER AT BEDSIDE.
[2023-01-24 05:45] LABS: BASOPHILS ABSOLUTE AUTO 0.05 K/mm3 (0.00-0.23); BASOPHILS PERCENT AUTO 0 % (0-2); EOSINOPHILS ABSOLUTE AUTO 0.14 K/mm3 (0.00-0.68); EOSINOPHILS PERCENT AUTO 1 % (0-6); Hemoglobin 12.6 g/dL (11.5-16.0); IMMATURE GRAN ABSOLUTE AUTO 0.03 K/mm3 (0.00-0.10); IMMATURE GRAN PERCENT AUTO 0 % (0-1); LYMPHOCYTES ABSOLUTE AUTO 1.65 K/mm3 (0.84-5.20); LYMPHOCYTES PERCENT AUTO 14 % (21-46); MONOCYTES ABSOLUTE AUTO 1.17 K/mm3 (0.16-1.47); MONOCYTES PERCENT AUTO 10 % (4-13); Mean Corpuscular HGB 31.1 pg (26.0-34.0); Mean Corpuscular HGB Conc 34.1 g/dL (31.5-36.5); Mean Corpuscular Volume 91 fL (80-100); Mean Platelet Volume 9.2 fL (9.1-12.4); NEUTROPHILS ABSOLUTE AUTO 8.62 K/mm3 (1.96-9.15); NEUTROPHILS PERCENT AUTO 74 % (41-73); Platelet Count 260 K/mm3 (150-400); RDW Coefficient Variation 12.3 % (11.7-14.2); Red Blood Cell Count 4.05 M/mm3 (3.80-5.20); White Blood Cell Count 11.66 K/mm3 (4.00-11.30)
--- NOTE | 2023-01-24 06:06 | NUR ---
SUMMARY: PT CONT'S TO HAVE AMS, IS DROWSY WA AND APPEARS DELIRIOUS. SHE'S WAKEFUL TO VOICE AND TRACKS W/EYES WHEN HER NAME IS SPOKEN BUT REMAINS UNABLE TO ANSWER Q'S OR INTERACT APPROPRIATELY. PT OFTEN MOANS, SAYS REPEATED WORDS OR SPEAKS IN NONSENSICAL SHORT PHRASES. SHE ATTEMPTS TO CONVEY NEEDS BUT MOSTLY JUST REPEATS WHAT YOU'VE SAID SO ACCURACY OF RESPONSES IS QUESTIONABLE. HER MOOD IS VERY LABILE AND SHE'S EITHER ASLEEP OR AWAKE BUT ANXIOUS, TEARFUL, RESTLESS AND AGGITATED. SHE REQ'D X2 DOSES IV ATIVAN PRN AND STAT IM ZYPREXA TO ASSIST IN CALMING HER. HALDOL IM PRN WAS RX'D BUT NOT YET RECIEVED. PT ALSO REQ'D ST.CATH TONIGHT FOR URINARY RETENTION AFTER BEING UNABLE TO VOID OR COMPREHEND BSC. PROCEDURE WAS EXTREMELY DIFFICULT AND REQUIRED 6+ STAFF AND SECURITY TO PREVENT PT FROM HARMING HERSELF AND OTHERS. NEARLY 1300 MLS UO WAS DRAINED, SEE PREVIOUS NOTE FOR THOSE DETAILS. FENTANYL WAS RX'D AND RECIEVED X2 FOR S/S PAIN AND PT HAS CHRONIC NECK AND TMJ PAIN AT BASELINE. CONT BIOX AND TELE ARE INTACT, SPO2 HAS REMAINED WNL ON RA BUT HR BECOMES TACHY DURING PERIODS OF ANXIETY AND DISTRESS. SHE WAS NSR AT 70'S-90'S BPM W/VSS AND AFEBRILE. D5 INFUSES, CBG'S WERE 90'S AND IV ABX AND KEPPRA WERE PROVIDED. NO S/S SEIZURES OR ACUTE CHANGES. 1:1 HIGH SI AND SITTER MONITORING IN PROGRESS. NO ACUTE CHANGES. WCTM AND REPORT TO DAY RN.
[2023-01-24 06:10] LABS: Albumin, Blood 3.7 g/dL (3.4-5.0); Anion Gap 5 mmol/L (6-16); Blood Urea Nitrogen 6 mg/dL (8-24); Bun/Creatinine Ratio 9.3 (12.0-20.0); CO2, Blood 27 mmol/L (21-32); Calcium, Blood 8.2 mg/dL (8.5-10.1); Chloride, Blood 109 mmol/L (98-108); Creatinine, Blood 0.64 mg/dL (0.40-1.00); Glomerular Filtration Rate 107 (60-); Glucose, Blood 94 mg/dL (70-99); Phosphorus, Blood 2.6 mg/dL (2.5-4.9); Potassium, Blood 3.3 mmol/L (3.5-5.5); Sodium, Blood 141 mmol/L (136-145)
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
--- NOTE | 2023-01-24 11:37 | NUR ---
TRANSFER PT ARRIVED TO ICU 11 IN 4 POINT LOCKED RESTRAINTS. SECURITY NOTIFIED FOR TRANSFER TO ICU BED. PT SCREAMING RANDOMLY, PULLING AT RESTRAINTS. PRECEDEX STARTED ORDERED BY DR. TEMPLE. ALSO ORDERED PT TO HAVE A FULLY, WILL PLACE ONCE PRECEDEX HAS TIME TO RELAX PT. ATIVAN GIVEN WHILE WAITING FOR PRECEDEX PT IS TRYING TO SIT UP IN BED, PULLING ON RESTRAINTS. PT QUIETER NOW, STILL TRYING TO SIT UP, SITTER AT BEDSIDE. CONTINUING TO MONITOR.
--- NOTE | 2023-01-24 12:12 | NUR ---
1130- THIS RN AND TANNA ELIZONDO/LUÍS TRANSFERED PT TO ICU ROOM 11 AFTER REPORT WAS GIVEN TO ICU, RN.
--- NOTE | 2023-01-24 12:14 | NUR ---
1145- DAUGHTER OF PT, SHAY CEBALLOS, CALLED AND THIS RN INFORMED HER HER MOTHER HAD BEEN TRANSFERRED TO ICU ROOM 11 AND WAS NOW IN 4 POINT RESTRAINTS DUE TO UNSAFE BEHAVIOR. DAUGHTER RESPONED WITH, "OKAY, THAT SOUND LIKE MY MOM."
[2023-01-24 12:17] LABS: Source, Urine Foley catheter
[2023-01-24 12:33] LABS: Bilirubin, Urine Neg (Neg); Blood, Urine Neg (Neg); Glucose Qualitative, Urine Neg (Neg); Ketones, Urine Neg (Neg); Leukocyte Esterase, Urine 1+ (Neg); Nitrite, Urine Neg (Neg); Protein, Urine Neg (Neg); Urobilinogen, Urine NORM (Normal)
[2023-01-24 12:58] LABS: Appearance, Urine Hazy (Clear); Color, Urine Yellow (P-Yellow)
[2023-01-24 12:59] LABS: Bacteria Rare /hpf; Red Blood Cells, Urine Not Seen /hpf (0-2); Squamous Epithelial Cells Mod /hpf (Few)
--- NOTE | 2023-01-24 16:39 | NUR ---
SHIFT SUMMARY PT TRANSFERRED FROM MEDICAL FLOOR TODAY AND WAS VERY AGITATED UPON ARRIVAL, SCREAMING LOUD SHE COULD RANDOMLY, THRASHING IN BED, PULLING AT HER RESTRAINTS. WITH THE PRECEDEX SHE WENT TO SLEEP, BUT PRECEDEX HAS HAD TO BE TITRATED DOWN DUE TO BRADYCARDIA. CURRENTLY PT RESTS ON AND OFF. WHEN SHE IS AWAKE SHE IS MORE SEDATE, TALKING SOFTLY. SHE TRIES TO ASK QUESTIONS, BUT DOESN'T GET PAST THE FIRST 2 OR 3 WORDS BEFORE SHE LOSES HER FOCUS. SHE TRIES TO SIT UP AND GET OUT OF BED, BUT IS MUCH SLOWER AND WEAKER WITH THE PRECEDEX SO SHE ENDS UP JUST LAYING BACK DOWN INSTEAD OF PULLING VIOLENTLY ON THE RESTRAINTS LIKE SHE WAS WHEN SHE FIRST ARRIVED. HER LUNGS ARE CLEAR, RA. SB WITH RATE IN THE 50S WHEN ASLEEP, 60S AND 70S WHEN AWAKE. BP SOFT, BUT MAP IS 65 AND PT HAS GOOD URINE OUTPUT. PT'S FLOYD CAME BY AND THEY WERE UPDATED. PLAN DISCUSSED WITH THEM AND ALL QUESTIONS ANSWERED.
--- NOTE | 2023-01-24 19:41 | NUR ---
ASSUMED CARE OF PT AT 1900 BEDSIDE SHIFT REPORT DONE WITH PT AWAKE AND TALKING. PT CONFUSED A/O X1. PULLING AT RESTRAINTS AT THIS TIME. BED IN LOW POSITION AND A SITTER AT THE DOOR. SEE FULL ASSESSMENT FOR FURTHER INFORMATION.
[2023-01-25] VITALS (15 sets, daily range): BP systolic 94–155; BP diastolic 54–96
--- NOTE | 2023-01-25 01:46 | NUR ---
PT CONTINUES TO THRASH IN BED. HAS MANAGED TO MANEUAVER HERSELF INTO A POSITION WHERE SHE IS ABLE TO GRASP ONTO HER WALKER CATH AND PULL. MULTIPLE SECUREMENT DEVICES REPLACED. PT REPOSITIONED AND BOOSTED TO THE BEST OF STAFF ABILITY, HOWEVER PT IS VARY COMBATIVE. PINCHES, BITES, SCRATCHES IF GIVEN OPPORTUNIY. PT HAS ALSO PULLED TELE LEADS OFF COMPLETELY. WHEN TRYING TO PUT LEADS BACK ON PT TRIED TO HEAD BUTT THIS RN. WILL TRY TO GET VITALS IF SAFE.
[2023-01-25 04:32] LABS: BASOPHILS ABSOLUTE AUTO 0.02 K/mm3 (0.00-0.23); BASOPHILS PERCENT AUTO 0 % (0-2); EOSINOPHILS ABSOLUTE AUTO 0.09 K/mm3 (0.00-0.68); EOSINOPHILS PERCENT AUTO 1 % (0-6); Hemoglobin 11.1 g/dL (11.5-16.0); IMMATURE GRAN ABSOLUTE AUTO 0.02 K/mm3 (0.00-0.10); IMMATURE GRAN PERCENT AUTO 0 % (0-1); LYMPHOCYTES ABSOLUTE AUTO 0.89 K/mm3 (0.84-5.20); LYMPHOCYTES PERCENT AUTO 11 % (21-46); MONOCYTES ABSOLUTE AUTO 0.65 K/mm3 (0.16-1.47); MONOCYTES PERCENT AUTO 8 % (4-13); Mean Corpuscular HGB 31.6 pg (26.0-34.0); Mean Corpuscular HGB Conc 35.8 g/dL (31.5-36.5); Mean Corpuscular Volume 88 fL (80-100); Mean Platelet Volume 9.8 fL (9.1-12.4); NEUTROPHILS ABSOLUTE AUTO 6.11 K/mm3 (1.96-9.15); NEUTROPHILS PERCENT AUTO 78 % (41-73); Platelet Count 243 K/mm3 (150-400); RDW Coefficient Variation 12.3 % (11.7-14.2); RDW Standard Deviation 39.5 fL (35.1-46.3); Red Blood Cell Count 3.51 M/mm3 (3.80-5.20); White Blood Cell Count 7.78 K/mm3 (4.00-11.30)
[2023-01-25 04:52] LABS: Bun/Creatinine Ratio 10.8 (12.0-20.0); Calcium, Blood 7.9 mg/dL (8.5-10.1); Creatinine, Blood 0.56 mg/dL (0.40-1.00); Potassium, Blood 2.9 mmol/L (3.5-5.5)
--- NOTE | 2023-01-25 06:14 | NUR ---
END OF SHIFT SUMMARY PT REMAINS CONFUSED THIS SHIFT. PT MEDICATED PER EMAR TO CALM DOWN AFTER SCREAMING AND TRYING TO GET OUT OF BED. THRASHES IN BED AND PULLS AT RESTRAINTS CONSTANTLY. PRECEDEX TITRATED UP FROM 0.4 TO 0.7 D/T SCREAMING AND THRASHING. PT PULLED OUT IV THAT WAS IN LEFT AC AREA. PT ALSO TRIES TO PULL ON WALKER CATHETER. SHE HAS PULLED SECUREMENT DEVICE FOR WALKER OFF MULTIPLE TIMES. UNABLE TO KEEP SPO2 PROBE ON PT D/T HER THRASHING AND FLEXIBLE ABILITIES. SPOT CHECKED SPO2 WITH 95-100%. RR 15-20 DEPENDING ON ACTIVITY. D5 NS AT 100 MLS/HR. HR LOW 50'S WHEN SLEEPING. SR WITH SBP 110'S. 40 MEQ KCL INITIATED THIS AM. 1:1 SITTER THE ENTIRE SHIFT. WILL CONT TO MINITOR UNTIL REPORT GIVEN TO AM RN.
--- NOTE | 2023-01-25 07:42 | NUR ---
PT WAKENS WITH TOUCH, SHE IS ANSWERING QUESTIONS. SAYS IT'S THE January AND THAT SHE IS HAVING "DETERIORATION OF HER JAW". SHE STATES SHE HAS HAD SEIZURES BEFORE. SHE IS DROWSY AND HER SPEECH IS QUIET AND DIFFICULT TO UNDERSTAND. BREATHING IS EASY AND NON LABORED. PULSES ARE STRONG. TATS IN PLACE, GOOD CIRC CHECKS. PG TO LEONIDAS WITH D5W @ 100ML/HR AND PRECEDEX AT 0.7 MCG/KG/HR. SITTER AT THE DOOR.
--- NOTE | 2023-01-25 08:58 | NUR ---
FREEMAN IS QUITE ALERT AND ABLE TO COMMUNICATE. WAS HERE AND PT WAS ABLE TO COMMUNICATE WITH HER. 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 SHE HAS TWO DAUGHTERS IN THEIR 20'S. SHE TOLD ABOUT HER MEDS FOR ALOPECIA. ASKING THAT HER RESTRAINTS BE LOOSENED APOLOGIZES FOR HER BEHAVIOR. PT INSTRUCTED THAT WILL BEGIN LOWERING HER MEDI- CATION AND WORKING ON CLEARING HER HEAD SO THAT SHE CAN BEHAVE APPROPRIATELY. WRISTS WRAPPED IN KERLIX AND RESTRAINTS REAPPLIED. ASKING FOR FLUIDS, SWABBED HER MOUTH WITH WATER. TOLD HER THAT SHE WILL HAVE A SWALLOW EVAL ONCE HER HEAD BEGINS CLEARING MORE. PT ROLLED ON TO HER SIDE AND APPEARS TO BE SLEEPING.
--- NOTE | 2023-01-25 11:57 | NUR ---
FREEMAN WAKENS WHEN I AM IN THE ROOM, SHE ASKS TO BE UNRESTRAINED TO BE ABLE TO SHOW ME HER JAW. HER BITE IS UNALIGNED AND SHE ISN'T ABLE TO CLOSE HER MOUTH PROPERLY. SHE IS TALKING ABOUT HER EXPERIENCES AND TREATMENT SINCE HER JAW SURGERY IN FEBRUARY. SHE IS TALKING ABOUT HER DAY PRIOR TO AWAKING HERE. SHE REMEMBERS BEING AWAKE AND IN PAIN FOR OVER 48 HOURS AND THAT HER "CAREGIVER" GAVE HER 2 MUSCLE RELAXERS. SHE REMEMBERS TALKING TO HER SISTER AND HER SISTER'S FRIEND, SHE BEGINS THINKING THAT SHE WAS GIVEN SOMETHING THAT SHE SHOULDN'T HAVE TAKEN. SHE IS TEARFUL AND EMOTIONAL. PAIN MEDICATIONS OFFERED AND ACCEPTED. PT IS NOW QUIETLY RESTING.
--- NOTE | 2023-01-25 13:38 | NUR ---
FREEMAN IS BEING VERY APPROPRIATE AND VERY COOPERATIVE. SHE HAS BEEN RELEASED FROM THE RESTRAINTS, ORIENTED TO THE CALL LIGHT, WALKER CATHETER REMOVED, PASSED THE BEDSIDE SWALLOW EVAL AND TOOK IN SOME JUICE, CRACKERS AND CHEESE. SHE HAS CONTINUED TO BE VERY EMOTIONAL, CONCERNED THAT SHE HAS MISSED THE ENTIRE WEEKEND. SHE CONTINUES TO BE ORIENTED AND KNOWLEDGEABLE TO HER SURROUNDINGS.
[2023-01-25 13:43] LABS: Phosphorus, Blood 3.2 mg/dL (2.5-4.9); Potassium, Blood 3.4 mmol/L (3.5-5.5)
--- NOTE | 2023-01-25 14:05 | NUR ---
daughters are here visiting with patient, she was less enthusiastic to see them than anticipated by her communication earlier. They are in the room with her at this time.
--- NOTE | 2023-01-25 15:38 | NUR ---
FREEMAN CONTINUES TO COMPLAIN OF A HEADACHE, CALL TO . SHE WILL PUT IN SOME ORDERS. PT RETURNED TO BED. LIGHTS OFF.
--- NOTE | 2023-01-25 16:43 | NUR ---
PT CONTINUES TO BE VERY ALERT AND ORIENTED, SHE EXPRESSED CONCERN ABOUT HER ALLERGIES, SHE WAS TOLD THE TWO WE HAVE LISTED, SHE IS THEN CONCERNED SHE REPORTS A SEVERE REACTION TO HALDOL THAT MAKES HER COMBATIVE AND DELUSIONAL. SHE STATES SHE WAS GIVEN THIS AFTER HER JAW SURGERY AND IT WAS "NOT GOOD". THIS IS REPORTED ALONG WITH HER OTHER ALLERGIES AND THEN DC'D FROM HER LIST OF MEDICATIONS. SHE HAS BEEN UP TO THE BEDSIDE COMMODE AND SHE WAS ABLE TO URINATE 900 ML. SHE HAS BEEN STEADY WITH ONE PERSON STAND BY ASSIST. SHE CONTINUES TO ASK ABOUT HER DINNER, TOLD IT IS COMING AND SHE EXPRESSES SATISFACTION WITH THIS.
--- NOTE | 2023-01-25 18:25 | NUR ---
FREEMAN IS RESTING CURRENTLY, IV D5W @ 100ML/HR INFUSING. SCHEDULED TO HAVE MRI AROUND 1930 THIS EVENING. SHE HAS BEEN OFF THE PRECEDEX SINCE JUST AFTER NOON TIME AND HAS BEEN APPROPRIATE, ORIENTED, AND COOPERATIVE. SHE WAS ABLE TO UPDATE HER MEDICATIONS AND ALLERGIES, VISIT WITH HER GIRLS AND VOID USING THE BSC WITHOUT ANY TROUBLE. SHE IS LAYERED IN A HEADWRAP, SWEATER AND PANTS. SHE CONTINUES WITH A HEADACHE. HAS BEEN UPDATED THROUGHOUT THE SHIFT. SHE DOES REPORT SOME STINGING WITH URINATION.
[2023-01-26] VITALS (11 sets, daily range): BP systolic 92–137; BP diastolic 56–97
--- NOTE | 2023-01-26 00:04 | NUR ---
SIGNIFICANT EVENT: PATIENT WITH BLANK STARE STILL CONVERSING, ENDORSED INCREASED VISION LOSS OF THE RIGHT EYE THAN BEGAN TO SAY HER THROAT WAS UNABLE TO SWALLOW, VERY INCREASED DIZZINESS, NYSTAGMUS NO LONGER PRESENT, PATIENT WITH INCREASED RESPIRATIONS, SPO2 >94%. PATIENT ABLE TO FOLLOW BASIC COMMANDS, SLOWWED SLURRED SLOWWED SPEECH, RESPONSIVE PUPILS, WEAKENED BATTERY MECHANIC STRENGTH, BILATERAL, DECREAED BLE MOVEMENT AND STRENGTH. PROVIDER NOTIFIED, WITH ATIVAN 2mg WITH GREAT RESULTS. PROVIDER AWARE. DEEPER LOOK INTO CASE.
--- NOTE | 2023-01-26 01:10 | NUR ---
JUAN CARLOS WATCH QUESTIONS: PATIENT WITH INCREASED ANXIETY DUE TO UNABLE TO LOCATE. PATIENT ENDORSES IT WAS WITH HER UPON ARRIVAL TO ED. PATIENT HAS BEEN UNABLE TO CALL FAMILY HESELF. SPOKE WITH DAUGHTER ON CONTACT BRUCE AND WITH VERBAL PERMISSION WAS ABLE TO ASK. DAUGHTER ENDORSES THAT WILL LOOK AT THE HOUSE AND DENIES PATIENT WAS WEARING AT ARRIVAL VIA EMS. PATIENT STILL ENDORSING OTHERWISE, WITH HYPER FIXATION. PATIENT CALLED DAUGHTER REPEATEDLY, AND PATIENT'S DAUGHTER ACTUALLY CAME IN AROUND 0313 TO CALM PATIENT . PATIETN RESPONDED. WELL. EDUCATED ON SITUATION MULTIPLE TIMES. NO CONCERNS FROM FAMILY OR PATIENT AT THIS TIME.
--- NOTE | 2023-01-26 04:54 | NUR ---
SIGNIFICANT EVENT: PATIENT WITH VERY SIMILAR EPISODE PREVIOUSLY, SLIGHTLY WORSE, STILL REQUIRING ATIVAN 2 mg, HOWEVER, INCREASED DIFFICULTY WITH SWALLOWING WAS WORSE ATIVAN ADMINISTRATION WORKED AND SYMPTOMS STARTED RESOLVING WITHIN 5, AND PATIETN ABLE TO 2 P STAND PIVOT TRANSFER IN 15. DR. HEADLEY AT BEDSIDE.
[2023-01-26 04:57] LABS: BASOPHILS ABSOLUTE AUTO 0.03 K/mm3 (0.00-0.23); BASOPHILS PERCENT AUTO 0 % (0-2); EOSINOPHILS ABSOLUTE AUTO 0.08 K/mm3 (0.00-0.68); EOSINOPHILS PERCENT AUTO 1 % (0-6); Hematocrit 32.4 % (33.0-51.0); Hemoglobin 11.6 g/dL (11.5-16.0); IMMATURE GRAN ABSOLUTE AUTO 0.03 K/mm3 (0.00-0.10); IMMATURE GRAN PERCENT AUTO 0 % (0-1); LYMPHOCYTES ABSOLUTE AUTO 0.93 K/mm3 (0.84-5.20); LYMPHOCYTES PERCENT AUTO 11 % (21-46); MONOCYTES ABSOLUTE AUTO 0.78 K/mm3 (0.16-1.47); MONOCYTES PERCENT AUTO 9 % (4-13); Mean Corpuscular HGB 31.3 pg (26.0-34.0); Mean Corpuscular HGB Conc 35.8 g/dL (31.5-36.5); Mean Corpuscular Volume 87 fL (80-100); Mean Platelet Volume 9.9 fL (9.1-12.4); NEUTROPHILS ABSOLUTE AUTO 6.47 K/mm3 (1.96-9.15); NEUTROPHILS PERCENT AUTO 78 % (41-73); Platelet Count 282 K/mm3 (150-400); RDW Coefficient Variation 12.2 % (11.7-14.2); Red Blood Cell Count 3.71 M/mm3 (3.80-5.20); White Blood Cell Count 8.32 K/mm3 (4.00-11.30)
[2023-01-26 05:15] LABS: Albumin, Blood 3.5 g/dL (3.4-5.0); Anion Gap 8 mmol/L (6-16); Blood Urea Nitrogen 7 mg/dL (8-24); Bun/Creatinine Ratio 12.3 (12.0-20.0); CO2, Blood 26 mmol/L (21-32); Calcium, Blood 8.8 mg/dL (8.5-10.1); Chloride, Blood 108 mmol/L (98-108); Creatinine, Blood 0.57 mg/dL (0.40-1.00); Glomerular Filtration Rate 110 (60-); Glucose, Blood 123 mg/dL (70-99); Phosphorus, Blood 3.7 mg/dL (2.5-4.9); Potassium, Blood 3.5 mmol/L (3.5-5.5); Sodium, Blood 142 mmol/L (136-145)
--- NOTE | 2023-01-26 06:15 | NUR ---
TRANSFER SUMMARY/ EOS: PATIENT IS ALERT AND ORIETED 4 BUT CAN BE CONFUSED AT TIMES, REORIENTS WELL, BUT DECREASED ABILITY TO PROCESS TIME. PATIETN IS ON RA. SR, DENIES CHEST PAIN PRESSURE OR SOB. PATIENT STILL INFUSING D5 AT 100, VERY INCREASED URINE OUTPUT WITH DECREASED DYSURIA STILL PRESENT. PATIENT NOT NAUSEATED AT TIME OF TRANSFER, MRI PLAN FOR 10 OR NOON. NO CONCERNS FROM THIS RN. FAMILY HAD BEEN NOTIFIED OF MOVE PRIOR WHEN VISITED.
--- NOTE | 2023-01-26 06:31 | NUR ---
ICU TRANSFER PT ABLE TO TRANSFER FROM ICU BED TO PCU BED WITH 1 SBA. PT ALERT AND ORIENTED X4. DENIES ANY COMPLAINTS AT THIS TIME. VSS. SEIZURE PADS TO BED RAILS FOR SAFETY. BED ALARM IN PLACE FOR SAFETY. IV CURRENTLY SL, BUT PLANNING TO REVIEW FLUID ORDERS. TELE PLACED. ORIENTED TO ROOM AND CALL LIGHT.
--- NOTE | 2023-01-26 06:46 | NUR ---
PT NOW COMPLAINING OF BACK PAIN. RECLINER CHAIR BROUGHT INTO ROOM AND TECH GETTING A K PAD FOR COMFORT. PT STILL WANTING TO LAY IN BED AT THIS TIME. HAS ATTEMPTED TO GET OUT OF BED WITHOUT ASSISTANCE. EDUCATED PT ON FALL RISK AND SAFETY MEASURES. BED ALARM IN PLACE.
[2023-01-26] MEDS ORDERED: NABU500 PO (12:54)
[2023-01-26] MEDS ORDERED: BACL20 PO (12:55)
[2023-01-26] MEDS ORDERED: GABA100 PO (12:56)
[2023-01-26] MEDS ORDERED: GABA800 PO (12:57)
[2023-01-26] MEDS ORDERED: Norco 5-325 Ta1 EACH PO (12:57)
[2023-01-26] MEDS ORDERED: DIAZ5 PO (12:58)
[2023-01-26] MEDS ORDERED: METPHE10 PO (12:59)
[2023-01-26] MEDS ORDERED: METPHE27ER PO (13:01)
[2023-01-26] MEDS ORDERED: LIDO700A20 TOP (13:05)
[2023-01-26] MEDS ORDERED: SUMA25 PO (13:06)
[2023-01-26] MEDS ORDERED: Seroquel Xr50 MG PO (13:06)
--- NOTE | 2023-01-26 13:09 | NUR ---
UPDATE PT UP MULTIPLE TIMES OOB SETTING OFF THE BED ALARM SINCE INITIAL ASSESSMENT. PT ENCOURAGED TO CALL, BUT DOES NOT USE CALL LIGHT. PT VERY ANXIOUS AND TEARFUL AT TIMES. PT UNABLE TO VERBALIZE WHY SHE IS UPSET AND CRYING. WHEN ASKED ABOUT PAIN, PT STATES HER JAW IS HURTING HER. PT MEDICATED PER EMAR. PT PROVIDED HEATING PAD REQUESTED. PT HAS GONE TO MRI. DAUGHTER AT BEDSIDE. WILL CONTINUE TO MONITOR CLOSELY
--- NOTE | 2023-01-26 16:26 | NUR ---
SHIFT SUMMARY PT REMAINS AWAKE AND ALERT. PT ANXIOUS MOST OF SHIFT AND DIFFICULT TO CONSOLE. BP STABLE. HR HAS BEEN NSR 80'S. 02 SATS REMAIN ABOVE 90% ON RA. PT HAS DENIED PAIN THIS EVENING. PT UP TO THE SHOWER WITH ASSISTANCE. PT HAVING EEG DONE IN HER ROOM AT THIS TIME. WILL CONTINUE TO MONITOR AND REPORT TO ONCOMING RN
--- NOTE | 2023-01-26 18:04 | NUR ---
UPDATE THIS RN CALLED IN TO ROOM FROM STAFF MEMBER PERFORMING EEG. PT IS CRYING AND HAVING A PANIC ATTACK. PT STATES SHE FEELS LIKE SHE IS DYING AND CAN'T CALM DOWN. PT MEDICATED WITH ATIVAN PER EMAR. AFTER 10 MINUTES, PT CALMS DOWN AND IS ABLE TO LAY DOWN IN BED. WILL CONTINUE TO MONITOR CLOSELY
[2023-01-27 03:43] VITALS: BP 95/65
[2023-01-27 04:01] LABS: BASOPHILS ABSOLUTE AUTO 0.02 K/mm3 (0.00-0.23); BASOPHILS PERCENT AUTO 0 % (0-2); EOSINOPHILS ABSOLUTE AUTO 0.22 K/mm3 (0.00-0.68); EOSINOPHILS PERCENT AUTO 4 % (0-6); Hematocrit 38.5 % (33.0-51.0); Hemoglobin 13.7 g/dL (11.5-16.0); IMMATURE GRAN ABSOLUTE AUTO 0.01 K/mm3 (0.00-0.10); IMMATURE GRAN PERCENT AUTO 0 % (0-1); LYMPHOCYTES ABSOLUTE AUTO 1.61 K/mm3 (0.84-5.20); LYMPHOCYTES PERCENT AUTO 28 % (21-46); MONOCYTES PERCENT AUTO 12 % (4-13); Mean Corpuscular HGB 31.3 pg (26.0-34.0); Mean Corpuscular HGB Conc 35.6 g/dL (31.5-36.5); Mean Corpuscular Volume 88 fL (80-100); Mean Platelet Volume 9.4 fL (9.1-12.4); NEUTROPHILS ABSOLUTE AUTO 3.19 K/mm3 (1.96-9.15); NEUTROPHILS PERCENT AUTO 56 % (41-73); Platelet Count 312 K/mm3 (150-400); RDW Coefficient Variation 12.1 % (11.7-14.2); RDW Standard Deviation 39.2 fL (35.1-46.3); Red Blood Cell Count 4.38 M/mm3 (3.80-5.20); White Blood Cell Count 5.75 K/mm3 (4.00-11.30)
[2023-01-27 04:23] LABS: Bun/Creatinine Ratio 8.2 (12.0-20.0); Calcium, Blood 8.9 mg/dL (8.5-10.1); Creatinine, Blood 0.73 mg/dL (0.40-1.00); Potassium, Blood 3.9 mmol/L (3.5-5.5)
--- NOTE | 2023-01-27 05:09 | NUR ---
END OF SHIFT NOTE: PT REMAINS ALERT, ORIENTED X4 W/ INTERMITTENT CONFUSION. AT TIMES, PT WILL STATE THAT SHE IS AT HOME OR STATE THAT SHE WAS "JUST TALKING TO DR. YOUNG" BUT WAS NOT. ANXIOUS AT TIMES WHILE LETHARGIC AT OTHERS. PLEASANT AND COOPERATIVE W/ CARE. VSS. HR 60-80'S, SINUS RHYTHM ON TELE. SBP 90-100'S, MAP >65. PT DENIES CHEST PAIN/PRESSURE. SPO2 >93% ON RA, DENIES SOB. AFEBRILE. UP TO BSC W/ STAFF ASSIST, PT UNSTEADY W/ AMBULATION. ATTEMPTED TO CLIMB OOB MULTIPLE TIMES, BED ALARM REMAINS ON FOR PT SAFETY AND FALL PREVENTION. ONE INSTANCE OBSERVED BY THIS RN THAT PT HAD BLANK STARE AT THE WALL. PT COULD FOLLOW COMMANDS AND RESPONDED VERBALLY TO PHYSICAL STIMULI. PUPILS REMAINED EQUAL & REACTIVE DURING EVENT, NO ASYMMETRY OR OTHER DEFICITS OBSERVED. AWAITING EEG RESULTS, KEPPRA BEING ADMINISTERED PER EMAR. SEIZURE PRECAUTIONS IN PLACE. PT DENIED PAIN T/O THE NIGHT. NO OTHER NEEDS AT THIS TIME. CALL LIGHT WITHIN REACH, BED IN LOWEST POSITION. WILL REPORT TO ONCOMING RN.
[2023-01-27 07:44] VITALS: BP 108/77
--- NOTE | 2023-01-27 08:44 | NUR ---
DEXTROSE STOPPED AT [address] TEMPLE. PRN CHECKS FOR HYPOGLYCEMIA. PT MADE MEDICAL STATUS. PT/OT ORDERED.
--- NOTE | 2023-01-27 14:33 | NUR ---
DR. YOUNG SAW AND EVALUATED TO PT./ CODE STATUS CHANGED HE STATED THAT THE PT IS ALERT AND ORIENTED TO MAKE HER DECISIONS. THE PT DID STATE SHE HAS [place] THAT MA[place] A [place]. SHE TOLD THE CHARGE NURSE COLETTE AND I BOTH, THAT SHE WANTS TO BE A DNR. WE CALLED THE [place] AND ASKED FOR A COPY OF THE POLST AND CALED DR. TEMPLE ABOUT HER CODE STATUS. SHE WAS CHANGED FROM A FULL CODE TO A DNR.
[2023-01-27 15:08] VITALS: BP 116/75
--- NOTE | 2023-01-27 15:47 | NUR ---
SHIFT SUMMARY PT HAS BEEN A&OX4, 1P SBA W/ FWW, ON RA W/ SP02 >93%, AND SR 70'S-80'S ON TELE W/O ANY C/O ANGINA OR CHEST PRESSURE. THE PT HAS SHOWN NO SIGNS OF AGGITATION, CONFUSION, IMPULSIONS, OR STARING OFF THIS SHIFT. DR. YOUNG EVALUATED THE PT AND WANTED TO D/C THE ZYPREXA AND START MELATONIN TO HELP THE PT SLEEP. HE DISCUSSED THIS W/ DR. TEMPLE. SHE HAS WORKED W/ PT AND OT TODAY AND HAD A SHOWER. SHE HAS HAD A VERY GOOD DAY AND HAD NO ACUTE EVENTS. PT IS MEDICAL STATUS WITH TELE. FIRE IGNITION RISK HAS BEEN ASSESSED.
--- NOTE | 2023-01-27 15:56 | NUR ---
CARE HANDED OFF TO NANNETTE ULRICH.
[2023-01-27 19:51] VITALS: BP 94/55
[2023-01-28 02:53] VITALS: BP 97/66
--- NOTE | 2023-01-28 04:34 | NUR ---
SHIFT SUMMARY. PT HAS BEEN DOING WELL THROUGHOUT THIS SHIFT. AOX4, PLEASANT, COOPERATIVE WITH CARE. HAS BEEN ABLE TO SLEEP THROUGH MOST OF SHIFT AFTER 2100 MED PASS AND SHIFT ASSESSMENT. AWOKE EARLY THIS MORNING COMPLAINING OF NONDESCRIPT FEELINGS OF UNEASE BUT WAS UNABLE TO SPECIFY OR NARROW DOWN DESCRIPTION OF HOW SHE WAS FEELING. DENIES CHEST PAIN/PRESSURE, SOB, DIZZINESS, VERTIGO, ETC. DID NOTE THAT SHE FELT LIKE SHE COULD NOT COMPLETE AN ENTIRE BREATH BUT WAS SATTING >94% ON ROOM AIR AND LUNG SOUNDS WERE UNCHANGED FROM SHIFT ASSESSMENT. PT WAS VERY DROWSY THROUGHOUT CONVERSATION. DID NOTE THAT SHE FELT A BUT NAUSEOUS WHEN SHE TURNED HER HEAD TO THE SIDE. ADMINISTERED ZOFRAN FOR NAUSEA AND TYLENOL FOR REPORTED NECK PAIN AND PT HAS BEEN ABLE TO SLEEP WELL SINCE. VITAL SIGNS REMAIN STABLE. CBG AT THAT TIME WAS ~103. PT USES CALL LIGHT SPORADICALLY, SOMETIMES USING APPROPRIATELY AND ONCE IMPUSLIVELY OOB. 1 PERSON ASSIST ALTHOUGH PT HAS UNSTEADY GAIT. CONTINENT THUS FAR. BED LOCKED IN LOWEST POSITION. CALL LIGHT LEFT WITHIN REACH. CONTINUING TO MONITOR.
[2023-01-28 04:52] LABS: Bun/Creatinine Ratio 26.8 (12.0-20.0); Calcium, Blood 8.3 mg/dL (8.5-10.1); Creatinine, Blood 0.75 mg/dL (0.40-1.00); Potassium, Blood 4.2 mmol/L (3.5-5.5)
[2023-01-28 07:36] VITALS: BP 96/61
[2023-01-28 11:31] VITALS: BP 96/63
[2023-01-28] MEDS ORDERED: GABA300 PO ×2 (14:52)
[2023-01-28] MEDS ORDERED: Acetaminophen325 M1 PO (14:53)
[2023-01-28] MEDS ORDERED: LEVETIRACETAM PO (14:54)
[2023-01-28] MEDS ORDERED: ZOLP5 PO (14:55)
[2023-01-28 15:04] VITALS: BP 131/69
--- NOTE | 2023-01-28 16:20 | NUR ---
PT DISCHARGE PT HAS HAD NO ACUTE EVENTS TODAY. SHE HAS BEEN NSR ON TELE W/ HER HR 70'S-80'S. SHE HAS BEEN A SBA W/ THE FWW, AND HAS BEEN ON RA W/ SP02 >90%. SHE DISCHARGED TODAY AT ABOUT 1615. SHE WAS SENT WITH A HARD SCRIPT FOR AMBIEN AND HER MEDICATIONS WERE SENT [facility]. SHE HAS TRANSPORT SET UP. ALL BELONGINGS HAVE BEEN SENT WITH THE PT. HER POWER GLIDE HAS BEEN DISCHARGED W/O ANY COMPLAINTS.
== END 2023-01-28 16:16 | disposition home or self-care (01) | DRG 917 ==
LOC: ER 19:07 → MEDS 19:08 → PCU 01-23 12:44 → ICUE 01-23 12:44 → MEDS 01-23 12:44 → ICUE 01-24 11:10 → PCU 01-26 06:00
PROVIDERS: Emergency Medicine; Family Medicine; ADMIT Internal Medicine
DX: T43.011A Poisoning by tricyclic antidepressants, accidental (unintentional), initial encounter (principal); G92.8 Other toxic encephalopathy; E87.20 Acidosis, unspecified; N39.0 Urinary tract infection, site not specified; E87.0 Hyperosmolality and hypernatremia; F05 Delirium due to known physiological condition; E16.2 Hypoglycemia, unspecified; R56.9 Unspecified convulsions; F43.12 Post-traumatic stress disorder, chronic; G89.4 Chronic pain syndrome; F41.8 Other specified anxiety disorders; D72.829 Elevated white blood cell count, unspecified; D64.9 Anemia, unspecified; R33.9 Retention of urine, unspecified; E87.6 Hypokalemia; R54 Age-related physical debility; Z78.1 Physical restraint status; Z88.2 Allergy status to sulfonamides; Z91.040 Latex allergy status; Z79.899 Other long term (current) drug therapy; Z98.890 Other specified postprocedural states; Z87.891 Personal history of nicotine dependence
CPT/HCPCS: 36415; 51703; 70450; 70551; 71045; 80048; 80053; 80069; 81001; 82140; 82947; 83605; 83735; 84100; 84132; 84146; 84443; 84484; 85025; 87086; 93005; 93010; 94762; 95819; 96361; 96365; 96367; 96372; 96375; 96376; 97116; 97161; 97166; 97530; 97535; 99285-25; A9270; C1751; G0378; G0480; J0696; J1630; J1650; J1885; J1953; J2060; J2310; J2405; J3010; J3480; J7030; J7050; J7070; P9612

== ENCOUNTER 2023-02-25 12:26 | Emergency (ER) | payer OTHER ==
[~2023-02-25] VITALS: Ht 177.8 cm; Wt 68.0 kg
[~2023-02-25 12:26] MED LIST changes: +ASPI325 PO; +Acetaminophen325 M1 PO; +BACL20 PO; +GABA100 PO; +GABA300 PO; +GABA800 PO; +LEVETIRACETAM PO; +METPHE10 PO; +NABU500 PO; +Norco 5-325 Ta1 EACH PO; +SUMA25 PO; +Seroquel Xr50 MG PO; +ZOLP5 PO
[2023-02-25 14:43] LABS: BASOPHILS ABSOLUTE AUTO 0.04 K/mm3 (0.00-0.23); BASOPHILS PERCENT AUTO 1 % (0-2); EOSINOPHILS ABSOLUTE AUTO 0.04 K/mm3 (0.00-0.68); EOSINOPHILS PERCENT AUTO 1 % (0-6); Hematocrit 44.7 % (33.0-51.0); Hemoglobin 15.8 g/dL (11.5-16.0); IMMATURE GRAN ABSOLUTE AUTO 0.01 K/mm3 (0.00-0.10); IMMATURE GRAN PERCENT AUTO 0 % (0-1); LYMPHOCYTES ABSOLUTE AUTO 1.32 K/mm3 (0.84-5.20); LYMPHOCYTES PERCENT AUTO 20 % (21-46); MONOCYTES PERCENT AUTO 6 % (4-13); Mean Corpuscular HGB Conc 35.3 g/dL (31.5-36.5); Mean Corpuscular Volume 88 fL (80-100); Mean Platelet Volume 9.7 fL (9.1-12.4); NEUTROPHILS ABSOLUTE AUTO 4.78 K/mm3 (1.96-9.15); NEUTROPHILS PERCENT AUTO 73 % (41-73); Platelet Count 324 K/mm3 (150-400); RDW Coefficient Variation 11.9 % (11.7-14.2); RDW Standard Deviation 38.6 fL (35.1-46.3); White Blood Cell Count 6.59 K/mm3 (4.00-11.30)
[2023-02-25 15:08] LABS: Free Thyroxine 1.16 ng/dL (0.70-1.60); Magnesium, Blood 2.5 mg/dL (1.6-2.4); Thyroid Stimulating Hormone 0.807 uIU/mL (0.360-4.800)
[2023-02-25 15:09] LABS: Albumin, Blood 4.4 g/dL (3.4-5.0); Albumin/Globulin Ratio 1.3 (0.8-1.8); Bilirubin, Total 0.5 mg/dL (0.1-1.0); Bun/Creatinine Ratio 14.1 (12.0-20.0); Calcium, Blood 9.7 mg/dL (8.5-10.1); Creatinine, Blood 0.78 mg/dL (0.40-1.00); Globulin, Blood 3.3 g/dL (2.2-4.0); Potassium, Blood 3.8 mmol/L (3.5-5.5); Total Protein, Blood 7.7 g/dL (6.4-8.2)
[2023-02-25] MEDS ORDERED: ONDA4 PO (19:19)
[2023-02-25] MEDS ORDERED: Methocarbamol500 MG PO (19:19)
[2023-02-25 19:30] VITALS: BP 112/96
== END 2023-02-25 19:30 | disposition home or self-care (01) ==
LOC: ER 12:26
PROVIDERS: Emergency Medicine
DX: R11.2 Nausea with vomiting, unspecified (principal); R20.2 Paresthesia of skin; E83.39 Other disorders of phosphorus metabolism; Z88.8 Allergy status to other drugs, medicaments and biological substances; Z88.2 Allergy status to sulfonamides; Z91.040 Latex allergy status; Z79.899 Other long term (current) drug therapy; Z79.82 Long term (current) use of aspirin; Z87.891 Personal history of nicotine dependence
CPT/HCPCS: 70450; 70496; 70498; 71045; 80053; 83690; 83735; 83880; 84100; 84439; 84443; 84484; 85025; 93005; 93010; A9270; J0780; J1200; J2405; J7120; Q9967

== ENCOUNTER 2023-05-17 01:08 | Observation (INO) | payer OTHER ==
[~2023-05-17] VITALS: Ht 177.8 cm; Wt 65.8 kg
[~2023-05-17 01:08] MED LIST changes: +ONDA4 PO
[2023-05-17] MEDS ORDERED: Acetaminophen 325 MG TABLET PO ONE (02:25)
[2023-05-17] MEDS ORDERED: Diphth,Pertuss(Acell),Tet Vac 0.5 ML VIAL IM ONE (02:40)
[2023-05-17] MEDS ORDERED: LORazepam 2 MG/ML 1ML Injection IM ONE (02:40)
[2023-05-17 03:24] LABS: BASOPHILS ABSOLUTE AUTO 0.03 K/mm3 (0.00-0.23); BASOPHILS PERCENT AUTO 0 % (0-2); EOSINOPHILS ABSOLUTE AUTO 0.01 K/mm3 (0.00-0.68); EOSINOPHILS PERCENT AUTO 0 % (0-6); Hematocrit 42.8 % (33.0-51.0); Hemoglobin 14.6 g/dL (11.5-16.0); IMMATURE GRAN ABSOLUTE AUTO 0.03 K/mm3 (0.00-0.10); IMMATURE GRAN PERCENT AUTO 0 % (0-1); LYMPHOCYTES ABSOLUTE AUTO 1.09 K/mm3 (0.84-5.20); LYMPHOCYTES PERCENT AUTO 10 % (21-46); MONOCYTES ABSOLUTE AUTO 0.48 K/mm3 (0.16-1.47); MONOCYTES PERCENT AUTO 4 % (4-13); Mean Corpuscular HGB 30.1 pg (26.0-34.0); Mean Corpuscular HGB Conc 34.1 g/dL (31.5-36.5); Mean Corpuscular Volume 88 fL (80-100); Mean Platelet Volume 9.2 fL (9.1-12.4); NEUTROPHILS ABSOLUTE AUTO 9.34 K/mm3 (1.96-9.15); NEUTROPHILS PERCENT AUTO 85 % (41-73); Platelet Count 360 K/mm3 (150-400); RDW Coefficient Variation 12.7 % (11.7-14.2); RDW Standard Deviation 41.2 fL (35.1-46.3); Red Blood Cell Count 4.85 M/mm3 (3.80-5.20); White Blood Cell Count 10.98 K/mm3 (4.00-11.30)
[2023-05-17 03:44] LABS: Ethanol (Alcohol), Blood, Med <3 mg/dL; Salicylate <1.7 mg/dL (2.8-20.0)
[2023-05-17 04:03] LABS: Acetaminophen, Random <2.0 ug/mL (10.0-30.0); Alanine Aminotransfer (ALT/SGP 20 U/L (12-78); Albumin, Blood 4.5 g/dL (3.4-5.0); Albumin/Globulin Ratio 1.4 (0.8-1.8); Alk Phos 61 U/L (50-136); Anion Gap 8 mmol/L (3-11); Aspartate Aminotrans (AST/SGOT 22 U/L (12-37); Bilirubin, Total 0.3 mg/dL (0.1-1.0); Blood Urea Nitrogen 14 mg/dL (8-24); CO2, Blood 27 mmol/L (21-32); Chloride, Blood 112 mmol/L (98-108); Creatinine, Blood 0.64 mg/dL (0.40-1.00); Globulin, Blood 3.2 g/dL (2.2-4.0); Glomerular Filtration Rate 106 (60-); Glucose, Blood 144 mg/dL (70-99); Potassium, Blood 3.5 mmol/L (3.5-5.5); Sodium, Blood 143 mmol/L (136-145); Total Protein, Blood 7.7 g/dL (6.4-8.2)
[2023-05-17] MEDS ORDERED: Haloperidol Lactate Inj. 5 MG/ML Injection IM ONE (04:20)
[2023-05-17 04:47] LABS: Source, Urine Clean Catch
[2023-05-17 04:56] LABS: Bilirubin, Urine Neg (Neg); Blood, Urine 1+ (Neg); Glucose Qualitative, Urine Neg (Neg); Ketones, Urine Neg (Neg); Leukocyte Esterase, Urine 1+ (Neg); Nitrite, Urine Neg (Neg); Protein, Urine 1+ (Neg); Specific Gravity, Urine 1.015 (1.003-1.022); Urobilinogen, Urine NORM (Normal); pH, Urine 6.5 (5.0-8.0)
[2023-05-17 05:00] LABS: Influenza A, PCR NEGATIVE (NEGATIVE); Influenza B, PCR NEGATIVE (NEGATIVE); Resp Syncytial Virus, PCR NEGATIVE (NEGATIVE); SARS-Cov-2 (COVID-19) PCR, MMC NEGATIVE (NEGATIVE)
[2023-05-17 05:09] LABS: U Amphetamine Screen Not Detected; U Barbituate Screen Not Detected; U Benzodiazapine Screen Not Detected; U Buprenorphine Screen Not Detected; U Cannabinoids Screen DETECTED; U Cocaine Screen Not Detected; U Methadone Screen Not Detected; U Methamphetamine Screen Not Detected; U Opiates Screen Not Detected; U Oxycodone Screen Not Detected; U Phencyclidine Screen Not Detected
[2023-05-17 05:10] LABS: Appearance, Urine Hazy (Clear); Color, Urine Yellow (P-Yellow)
[2023-05-17 05:11] LABS: Amorphous Light (0-Heavy); Bacteria Mod /hpf; Mucus Heavy (0-Heavy); Red Blood Cells, Urine 0-2 /hpf (0-2); Squamous Epithelial Cells Mod /hpf (Few)
[2023-05-17 08:23] VITALS: BP 131/91
[2023-05-17] MEDS ORDERED: METHYLPHENIDATE27 MG PO (11:08)
[2023-05-17] MEDS ORDERED: LAMO25 PO (11:14)
[2023-05-17] MEDS ORDERED: QUET100 PO (11:15)
[2023-05-17] MEDS ORDERED: Baclofen 10 MG Tab PO SCH ×2 (11:32→14:00)
[2023-05-17] MEDS ORDERED: LevETIRAcetam 500 MG Tab PO ONE (11:35)
[2023-05-17] MEDS ORDERED: LamoTRIgine 25 MG Tab PO ONE (11:35)
[2023-05-17] MEDS ORDERED: LevETIRAcetam 500 MG Tab PO SCH (21:00)
[2023-05-17] MEDS ORDERED: LamoTRIgine 100 MG Tab PO SCH (21:00)
[2023-05-17] MEDS ORDERED: LamoTRIgine 25 MG Tab PO SCH (21:00)
[2023-05-17] MEDS ORDERED: QUEtiapine Fumarate 100 MG Tab PO SCH (21:00)
== END 2023-05-17 16:56 | disposition home or self-care (01) ==
LOC: ER 01:08 → EOR 01:09
PROVIDERS: ADMIT Student in an Organized Health Care Education/Training Program
DX: F33.9 Major depressive disorder, recurrent, unspecified (principal); F43.12 Post-traumatic stress disorder, chronic; R41.0 Disorientation, unspecified; Z91.040 Latex allergy status; Z88.2 Allergy status to sulfonamides; Z88.8 Allergy status to other drugs, medicaments and biological substances
CPT/HCPCS: 0241U; 70110; 73120; 80053; 81001; 81025; 85025; 87086; 90471; 90715; 93005; 93010; 99285-25; A9270; G0378; G0480; J1630; J2060